=== PATIENT | female | born 1985 | race African-American/Black ===

== ENCOUNTER 2016-05-19 16:44 | Inpatient (IN) | payer BC, OTHER ==
[2016-05-19] MEDS ORDERED: MAGNESIUM SULFATE-WATER PMX 4 GM in WATER FOR INJECTION 50 50ML.BAG IVPB ONE (17:26)
[2016-05-19] MEDS ORDERED: LABETALOL SYRINGE 5 MG/ML IVP PRN (17:30)
[2016-05-19 17:41] LABS: Basophils % (A) 0 %; CH 32.3; CHCM 33.4; Eosinophils # (A) 0.1 k/uL (0-0.7); Eosinophils % (A) 2 %; HCT 39.1 % (34.0-46.0); HDW 2.46; HGB 12.6 gm/dL (11.4-16.0); Luc # (Auto) 0.14; Luc % (Auto) 2; Lymphocytes # (A) 1.5 k/uL (1.0-4.8); Lymphocytes % (A) 17 %; MCH 31.3 pg (25.0-35.0); MCHC 32.2 g/dL (31.0-37.0); MCV 97.2 fL (80.0-100.0); Mean Platelet Volume 9.5; Monocytes # (A) 0.5 k/uL (0-1.0); Monocytes % (A) 6 %; Neutrophils # (A) 6.4 k/uL (1.3-7.7); Neutrophils % (A) 74 %; RBC 4.02 m/uL (3.80-5.40); RDW 12.9 % (11.5-15.5); WBC 8.7 k/uL (3.8-10.6); WBC (Perox) 9.18
[2016-05-19 17:52] LABS: ALT 32 U/L (9-52); AST 34 U/L (14-36); Blood Urea Nitrogen 14 mg/dL (7-17); Non-African American GFR(MDRD) >60 (>60 ml/min/1.73 sqM); Uric Acid 4.9 mg/dL (3.7-7.4)
[2016-05-19] MEDS ORDERED: CITRIC ACID-SODIUM CITRATE 15 ML CUP PO ONE (17:53)
[2016-05-19 17:55] LABS: Glucose,Whole Blood 76 mg/dL (75-99)
[2016-05-19] MEDS: LACTATED RINGERS 1,000 ML IV SCH (17:55)
[2016-05-19] MEDS ORDERED: OXYTOCIN 10 UNIT/ML 1 ML VIAL IM ONE (18:04)
[2016-05-19] MEDS ORDERED: fentaNYL (PF) 50 MCG/ML 2 ML AMP ONE (18:04)
[2016-05-19] MEDS ORDERED: ceFAZolin 1,000 MG VIAL ONE (18:04)
[2016-05-19] MEDS ORDERED: KETOROLAC 30 MG/ML 1 ML VIAL ONE (18:04)
[2016-05-19] MEDS ORDERED: MORPHINE SULFATE (PF) 0.3 MG/0.3 ML SYR ONE (18:04)
[2016-05-19] MEDS ORDERED: ONDANSETRON 4 MG/2 ML VIAL ONE (18:04)
[2016-05-19] MEDS ORDERED: LACTATED RINGERS 1,000 ML BAG IV ONE (18:04)
[2016-05-19 18:10] LABS: Appearance,Urine Clear (Clear); Bilirubin,Urine Negative (Negative); Glucose,Urine (UA) Negative (Negative); Ketones,Urine 1+ (Negative); Leukocyte Esterase,Urine Negative (Negative); Nitrite,Urine Negative (Negative); Protein,Urine Negative (Negative); Specific Gravity,Urine 1.007 (1.001-1.035); UA Billing (MACRO vs. MICRO) CHEM; Urobilinogen,Urine <2.0 mg/dL (<2.0)
[2016-05-19] MEDS ORDERED: MORPHINE SULFATE 4 MG/ML SYRINGE IVP PRN (18:29)
[2016-05-19] MEDS ORDERED: ONDANSETRON 4 MG/2 ML VIAL IVP PRN (18:29)
[2016-05-19] MEDS ORDERED: diphenhydrAMINE 50 MG/ML 1 ML VIAL IVP PRN ×3 (18:29→18:53)
[2016-05-19] MEDS ORDERED: NALBUPHINE 10 MG/ML AMPUL IV PRN (18:29)
[2016-05-19] MEDS ORDERED: NALOXONE 0.4 MG/ML 1 ML VIAL IV PRN (18:29)
[2016-05-19] MEDS ORDERED: METOCLOPRAMIDE 5 MG/ML 2 ML VIAL IVP PRN ×2 (18:29→18:53)
[2016-05-19] MEDS ORDERED: PROMETHAZINE INJ 6.25 MG in SODIUM CHLORIDE 0.9% 50 ML IVPB PRN (18:29)
[2016-05-19] MEDS ORDERED: diphenhydrAMINE 25 MG CAP PO PRN (18:53)
[2016-05-19] MEDS ORDERED: Acetaminophen-Codeine 300-30mg TAB PO PRN (18:53)
[2016-05-19] MEDS ORDERED: ACETAMINOPHEN TAB 325 MG TAB PO PRN (18:53)
[2016-05-19] MEDS ORDERED: ZOLPIDEM 5 MG TAB PO PRN (18:53)
[2016-05-19] MEDS ORDERED: diphenhydrAMINE 50 MG CAP PO PRN (18:53)
--- NOTE | 2016-05-19 18:57 | P.HPOB ---
History of Present Illness H&P Date: 05/19/16 Chief Complaint: Intrauterine at 35 weeks: Severe gestational hypertension Sal is a 30-year-old at 35 weeks gestation who was seen in the office today for her normal OB visit. At that time her blood pressure is 158/ 108 deep tendon reflexes were essentially normal but she did have a mild headache. Headache and present throughout the day. She was sent over to labor and delivery for gestational hypertensive labs and monitoring. Once here blood pressures began to even clamp higher despite being in a recovery position. Blood pressures were anywhere from 193/100-184/94. This is significantly elevated and while she was dilated to 3 cm after discussion with both she and her the decision to move forward with a section was made out of concern for the fact that she was remote from delivery and even after receiving a dose of IV labetalol for blood pressure only went down to 170/90. Risks/benefits/alternatives to a primary were made with the patient and all questions are answered for her prior to proceeding to the operating room. Should be noted that her course was complicated by gestational diabetes A2. She was controlled with insulin that she received as a nightly dose but otherwise she had no significant problems or complaints. Pertinent labs do include B+ blood type Rh to be negative rubella was immune hepatitis B surface antigen was negative. Past Medical History Past Medical History: No Reported History History of Any Multi-Drug Resistant Organisms: None Reported Past Surgical History: No Surgical Hx Reported Past Psychological History: No Psychological Hx Reported Smoking Status: Never smoker Past Alcohol Use History: None Reported Past Drug Use History: None Reported Medications and Allergies Home Medications Medication Instructions Recorded Confirmed Type Insulin NPH Human Isophane 16 unit SQ HS 05/19/16 05/19/16 History [NovoLIN N] Pnv with Ca,No.72/Iron/FA 1 each PO 05/19/16 History [ Plus Tablet] Allergies Allergy/AdvReac Type Severity Reaction Status Date / Time No Known Allergies Allergy Verified 05/19/16 17:04 Exam Osteopathic Statement: *. No significant issues noted on an osteopathic structural exam other than those noted in the History and Physical/Consult. - Vital Signs Vital signs: Intake and Output 05/19/16 05/19/16 05/19/16 06:59 14:59 22:59 Other: Weight 73.936 kg Patient Weight 05/20/16 06:59 Weight 73.936 kg - OBG Physical Exam Breast: both: normal (no masses) Abdomen: bowel sounds normal, no diffuse tenderness, no bruit present, no guarding noted, no hepatomegaly, no splenomegaly, no mass Vulva: both: normal Vagina: normal moisture, no discharge Cervix: no lesion, no discharge Uterus: normal size, normal contour Adnexa: both: normal Anus/Rectum: normal perianal skin, no rectal mass, no hemorrhoids, heme negative Results Result Diagrams: 05/19/16 17:30 05/19/16 17:30 Abnormal Lab Results - Last 24 Hours (Table) 05/19/16 Range/Units 18:00 Urine Ketones 1+ H (Negative)
--- NOTE | 2016-05-19 19:02 | P.OP ---
Date of Procedure: 05/19/16 Preoperative Diagnosis: Intrauterine 35 weeks: Severe gestational hypertension versus severe preeclamptic Postoperative Diagnosis: Same Procedure(s) Performed: Primary low transverse section from Pfannenstiel Anesthesia: spinal Surgeon: Ricky Sawyer Research Assistant Professor #1: Emmanuel Arroyo Estimated Blood Loss (ml): 400 IV fluids (ml): 1,300 Urine output (ml): 200 Pathology: other (Placenta) Condition: stable Disposition: floor Operative Findings: Female scores of 8 and 9 at one and 5 minutes Bruning weight was 5 lbs. 12 oz. Description of Procedure: Patient was taken to the operating suite where a spinal anesthetic was found be adequate. She was prepped and draped in the normal sterile fashion and placed in dorsal supine position with leftward tilt. Initially a Pfannenstiel skin incision was made and this incision was then carried through to underlying layer of the fascia was second knife. Fascia was then nicked in the midline and this opening was extended laterally with Dave scissors. Superior and inferior aspect of this incision were then grasped tented up and bluntly and sharply dissected off the rectus muscles. Rectus muscles were then divided midline and sharp dissection to the peritoneum was made. This opening was then extended superiorly and inferiorly with good visualization of both bowel bladder. Bladder blade was placed and the vesicouterine peritoneum was identified. This tissue was sent entered sharply with Metzenbaum scissors and the opening was extended across the face the uterus with Metzenbaum scissors with the bladder flap being digitally created. Knife was then used to incise uterus this opening was then extended bluntly. Once this was accomplished head was atraumatically delivered nuchal cord 1 reduced and shoulders were delivered with gentle traction. Once baby was fully delivered mouth nares were again bulb suctioned umbilical cord was then clamped cut usual fashion an nursery personnel was present to assume care. Placenta was then delivered intact and Pitocin was added to the IV. Uterus was then exteriorized cleared of clots and debris and closed in 2 layers with 0 Vicryl suture. Once excellent hemostasis was obtained 3-0 Vicryl was used to reapproximate the bladder flap. Blood and debris was then suctioned posterior cul-de-sac and the uterus was reinserted into the abdomen. Peritoneal layer was then closed L[place]ac suture fascial layer was closed with 0 Vicryl suture one layer of 3-0 Vicryl was used to reapproximate the skin and skin was then closed with 3-0 Vicryl on a Lawrence needle. Sponge lap needle counts all were correct 2. Patient was taken to the recovery room in stable and satisfactory condition.
[2016-05-19] MEDS: MAGNESIUM SULFATE-WATER PMX 20 GM in WATER FOR INJECTION 1 500ML.BAG IV SCH (19:30)
[2016-05-19 20:21] VITALS: BMI 27.1
[2016-05-19] MEDS: SENNOSIDES-DOCUSATE SODIUM 1 EACH TAB PO SCH (21:20)
[2016-05-20] MEDS: KETOROLAC 30 MG/ML 1 ML VIAL IVP PRN ×4 (00:54→20:33)
[2016-05-20] MEDS: LACTATED RINGERS 1,000 ML IV SCH ×4 (01:04→13:38)
[2016-05-20] MEDS: LABETALOL 100 MG TAB PO SCH ×3 (01:07→20:25)
[2016-05-20] MEDS: OXYTOCIN 30 UNITS/500 ML NS 30 UNIT in SALINE 1 500ML.BAG IV SCH ×4 (04:17→13:38)
[2016-05-20] MEDS: MAGNESIUM SULFATE-WATER PMX 20 GM in WATER FOR INJECTION 1 500ML.BAG IV SCH ×2 (05:39→15:44)
[2016-05-20 08:07] LABS: Basophils % (A) 0 %; CH 32.2; CHCM 33.3; Eosinophils # (A) 0.1 k/uL (0-0.7); Eosinophils % (A) 1 %; HCT 35.9 % (34.0-46.0); HDW 2.42; HGB 11.5 gm/dL (11.4-16.0); Luc # (Auto) 0.07; Luc % (Auto) 1; Lymphocytes # (A) 0.8 k/uL (1.0-4.8); Lymphocytes % (A) 8 %; MCH 31.3 pg (25.0-35.0); MCHC 32.1 g/dL (31.0-37.0); MCV 97.3 fL (80.0-100.0); Mean Platelet Volume 9.1; Monocytes # (A) 0.4 k/uL (0-1.0); Monocytes % (A) 4 %; Neutrophils # (A) 8.4 k/uL (1.3-7.7); Neutrophils % (A) 86 %; RBC 3.68 m/uL (3.80-5.40); WBC 9.8 k/uL (3.8-10.6); WBC (Perox) 10.14
[2016-05-20] MEDS: SENNOSIDES-DOCUSATE SODIUM 1 EACH TAB PO SCH ×2 (09:02→20:24)
--- NOTE | 2016-05-20 09:42 | P.PNOBGPC ---
Subjective - Subjective Principal diagnosis: Postoperative day 1: Gestational hypertension Interval history: Patient is doing very well this morning. Her blood pressure significant improved with labetalol they are 120s over 80s. Voices no complaints no headache epigastric pain or other signs or symptoms of preeclampsia. Vital signs are again stable. Heart regular, lungs clear, extremities without pain. Abdomen soft incision is intact. Assessment postop day 1. Plan continue current care. Objective - Vital Signs Latest vital signs: Vital Signs Temp Pulse Resp BP Pulse Ox 05/20/16 09:36 70 17 124/84 05/20/16 08:36 64 123/102 05/20/16 08:00 97.5 F L 66 17 141/81 97 05/20/16 05:45 97.5 F L 62 16 126/91 98 05/20/16 05:00 98 05/20/16 04:00 97.6 F 68 16 122/74 05/20/16 03:00 99 05/20/16 01:00 98.0 F 73 16 134/76 99 05/19/16 23:00 97.6 F 76 16 129/85 99 05/19/16 21:26 99 05/19/16 21:23 97.5 F L 71 16 135/84 99 05/19/16 20:51 62 16 147/85 100 05/19/16 20:23 67 16 147/85 100 05/19/16 19:53 97.0 F L 65 16 150/90 100 05/19/16 19:38 97.0 F L 62 16 147/85 99 05/19/16 19:23 61 16 145/84 99 05/19/16 19:08 65 16 168/82 98 05/19/16 18:53 96.1 F L 57 L 17 143/90 99 05/19/16 17:26 96.6 F L 52 L 16 172/96 Intake and Output 05/19/16 05/20/16 05/20/16 22:59 06:59 14:59 Intake Total 50 1950 Output Total 800 1200 Balance -750 750 Intake: IV 500 Magnesium Sulfate-Water 500 Pmx 20 gm In Water For Injection 1 500ml.bag @ 2 GM/HR 50 mls/hr IV .Q10H JENNA Rx#:[id number] Intake, IV Titration 50 1450 Amount Lactated Ringers 1,000 ml 950 @ 20 mls/hr IV .Q24H JENNA Rx#:[id number] Magnesium Sulfate-Water 500 Pmx 20 gm In Water For Injection 1 500ml.bag @ 2 GM/HR 50 mls/hr IV .Q10H JENNA Rx#:[id number] Magnesium Sulfate-Water 50 Pmx 4 gm In Water For Injection 50 50ml.bag @ 150 mls/hr IVPB ONCE ONE Rx#:[id number] Output: Urine 800 1200 Other: Voiding Method Indwelling Catheter Indwelling Catheter # Voids 600 Weight 73.936 kg - Exam Lungs: bilateral: normal Chest: Normal S1, Normal S2 Extremities: Present: normal Abdomen: Present: normal appearance, soft. Absent: distention, tenderness Incision: Present: normal, dry, intact Uterus: Present: normal, firm - Labs Labs: Abnormal Lab Results - Last 24 Hours (Table) 05/19/16 05/20/16 Range/Units 18:00 07:45 RBC 3.68 L (3.80-5.40) m/uL Plt Count 136 L (150-450) k/uL Neutrophils # 8.4 H (1.3-7.7) k/uL Lymphocytes # 0.8 L (1.0-4.8) k/uL Urine Ketones 1+ H (Negative)
--- NOTE | 2016-05-20 10:39 | P.PN ---
Progress Note - Text Date:05/20 Time:710 Patient is status post . Patient seen this morning with VAS score of . c/o of pruritus, no c/o nausea/vomiting, comfortable and doing well.
[2016-05-21] MEDS: Acetaminophen-Codeine 300-30mg TAB PO PRN ×4 (00:17→20:12)
[2016-05-21] MEDS: IBUPROFEN 600 MG TAB PO PRN ×3 (03:49→21:18)
--- NOTE | 2016-05-21 07:27 | P.PNOBGPC ---
Subjective - Subjective Principal diagnosis: Postoperative day 2 Interval history: Sal is overall doing well. Her blood pressures are noted to still be in the 140s 150s over 90s. However this is stable and there've been no significant elevations. We'll continue to monitor her through today continue with labetalol. Should her blood pressures change may need to increase the dose of labetalol but at this time with only mild blood pressure elevations will plan to maintain dosage. Otherwise she is ambulating, voiding and she is tolerating her diet. She voices no other complaints. Objective - Vital Signs Latest vital signs: Vital Signs Temp Pulse Resp BP Pulse Ox 05/21/16 03:48 98.6 F 74 10 L 145/93 05/21/16 00:00 98.0 F 76 10 L 146/89 05/20/16 16:00 97.6 F 74 19 134/91 98 05/20/16 12:00 97.6 F 71 17 121/84 100 05/20/16 09:36 70 17 124/84 05/20/16 08:36 64 123/102 05/20/16 08:00 97.5 F L 66 17 141/81 97 Intake and Output 05/20/16 05/21/16 05/21/16 22:59 06:59 14:59 Intake Total 500 Output Total 800 401 Balance -300 -401 Intake: Intake, IV Titration 500 Amount Magnesium Sulfate-Water 500 Pmx 20 gm In Water For Injection 1 500ml.bag @ 2 GM/HR 50 mls/hr IV .Q10H JENNA Rx#:[id number] Output: Urine 800 401 Other: Voiding Method Indwelling Catheter # Voids 1 - Exam Lungs: bilateral: normal Chest: Normal S1, Normal S2 Extremities: Present: normal Abdomen: Present: normal appearance, soft, other (Incisional tenderness only, incision is otherwise clean dry and intact). Absent: distention, tenderness Incision: Present: normal, dry, intact Uterus: Present: normal, firm - Labs Labs: Abnormal Lab Results - Last 24 Hours (Table) 05/20/16 Range/Units 07:45 RBC 3.68 L (3.80-5.40) m/uL Plt Count 136 L (150-450) k/uL Neutrophils # 8.4 H (1.3-7.7) k/uL Lymphocytes # 0.8 L (1.0-4.8) k/uL
[2016-05-21] MEDS: LACTATED RINGERS 1,000 ML IV SCH ×3 (07:30→12:12)
[2016-05-21] MEDS: MAGNESIUM SULFATE-WATER PMX 20 GM in WATER FOR INJECTION 1 500ML.BAG IV SCH ×2 (07:32→09:45)
[2016-05-21] MEDS: LABETALOL 100 MG TAB PO SCH (08:26)
[2016-05-21] MEDS: SENNOSIDES-DOCUSATE SODIUM 1 EACH TAB PO SCH ×2 (08:56→20:13)
[2016-05-21 11:59] LABS: Glucose,Whole Blood 161 mg/dL (75-99)
[2016-05-21] MEDS: LABETALOL 200 MG TAB PO SCH (16:49)
[2016-05-21] MEDS: amLODIPine 5 MG TAB PO SCH (20:12)
[2016-05-21] MEDS ORDERED: amLODIPine 5 MG TAB PO SCH (21:00)
[2016-05-21] MEDS ORDERED: hydrALAZINE HCL 20 MG/ML 1 ML VIAL IVP PRN (21:37)
[2016-05-21 22:39] LABS: ALT 27 U/L (9-52); AST 29 U/L (14-36); Alkaline Phosphatase 107 U/L (38-126); Anion Gap 6 mmol/L; Blood Urea Nitrogen 7 mg/dL (7-17); Calcium 8.7 mg/dL (8.4-10.2); Carbon Dioxide 24 mmol/L (22-30); Chloride 109 mmol/L (98-107); Glucose 138 mg/dL (74-99); Non-African American GFR(MDRD) >60 (>60 ml/min/1.73 sqM); Potassium 4.7 mmol/L (3.5-5.1); Sodium 139 mmol/L (137-145); Total Bilirubin 0.6 mg/dL (0.2-1.3); Total Protein 5.3 g/dL (6.3-8.2)
[2016-05-22] MEDS: Acetaminophen-Codeine 300-30mg TAB PO PRN ×3 (04:51→20:53)
[2016-05-22] MEDS: SENNOSIDES-DOCUSATE SODIUM 1 EACH TAB PO SCH ×2 (07:26→21:29)
[2016-05-22 07:27] LABS: Glucose,Whole Blood 91 mg/dL (75-99)
[2016-05-22] MEDS: IBUPROFEN 600 MG TAB PO PRN ×2 (07:27→16:17)
[2016-05-22] MEDS ORDERED: INSULIN LISPRO (humaLOG) 300 UNIT/3 ML VIAL SQ SCH (07:30)
--- NOTE | 2016-05-22 08:03 | CONS ---
DATE OF CONSULTATION: REASON FOR CONSULTATION: Hypertension and multiple medical issues requested by Dr. Sawyer. HISTORY OF PRESENT ILLNESS: This 30 -year-old woman presented with severe gestational hypertension underwent a section. The patient is having persistent hypertension. The blood pressure is found to be 161/88, 167/107, 155/93, 150/96, labetalol dose was increased. There is no history of fever, rigors or chills. No history of headache, loss of consciousness. No chest pain, palpitations, shortness of breath, hematochezia, melena. The patient being followed by Dr. Buitrago in the outpatient setting. Magnesium was administered after admission. Past medical history of ganglion cyst, otherwise, no history of previous hypertension or diabetes mellitus. SOCIAL HISTORY: No history of smoking. No history of alcohol intake. REVIEW OF SYSTEMS: ENT: No diminished hearing or diminished vision. CARDIOVASCULAR: No angina. RESPIRATORY: As mentioned earlier. GASTROINTESTINAL: As mentioned earlier. : As mentioned earlier. CENTRAL NERVOUS SYSTEM: No numbness or weakness. Allergy/immunology: No asthma or hayfever. MUSCULOSKELETAL: As mentioned earlier. HEMATOLOGY/ONCOLOGY: No history of anemia. ENDOCRINE: Gestational diabetes. CONSTITUTIONAL: As mentioned earlier. DERMATOLOGY: Negative. RHEUMATOLOGY: Negative. PSYCHIATRY: Negative. PHYSICAL EXAMINATION: Alert and oriented times three. Pulse 59, blood pressure 155/97. Respiratory rate 18. Temperature is normal. Pulse ox 100% on room air. HEENT: Conjunctivae normal. Oral mucosa moist. NECK: No jugular venous distention. No thyroid enlargement. No carotid bruit. CARDIOVASCULAR: S1, S2 muffled. No S3, no S4. No murmur. No thrills. RESPIRATORY: Breath sounds diminished at the bases. No rhonchi. No crackles. ABDOMEN: Soft, status post guarding, rigidity. No mass palpable. Legs: Bilaterally, minimal leg edema. Nervous system: Higher functions as mentioned earlier. No focal deficits. LYMPHATICS: No lymph nodes palpable in the neck, axillae or groin. SKIN: No ulcer, rash or bleeding. LABS: WBC 9.8 and platelets 136. ASSESSMENT: 1. associated hypertension. 2. Status post section. 3. Thrombocytopenia mild. 4. Increased random blood sugar. 5. History of ganglion cyst RECOMMENDATIONS AND DISCUSSION: This 30 -year-old woman who presented with multiple medical problems, agree with increase in Labetalol dose, add amlodipine. Also recommend hydralazine p.r.n. Baseline labs including liver functions may be obtained. We will follow the patient closely. The patient may be asked to follow with Dr. Buitrago closely after discharge. Thank you Dr. Sawyer for letting us participate in the care of this patient. MTDD
[2016-05-22] MEDS: LABETALOL 200 MG TAB PO SCH ×2 (08:14→20:53)
[2016-05-22 11:16] LABS: Hemoglobin A1C 5.2 % (4.2-6.1)
[2016-05-22] MEDS: amLODIPine 5 MG TAB PO SCH ×2 (11:47→12:30)
--- NOTE | 2016-05-22 11:55 | P.PNOBGPC ---
Subjective - Subjective Principal diagnosis: Postoperative day 3 Interval history: Patient is doing overall well. Her blood pressure seems to be better following adjustments of her blood pressure medicines. Her IV did come out we'll therefore continue to leave it out unless she starts having very significant blood pressure issues. Also was noted that medicine had at re-added Accu-Cheks with coverage. However, from a gestational diabetic standpoint there is no reason to continue those once she has delivered so we will therefore discontinued the Accu-Cheks. Otherwise she is able to ambulate, void and she is tolerating her diet. Her baby is doing very well in special care nursery. Is just now matter of getting her stabilized so that we can discuss potentially discharged home at some point in the near future. Her vital signs currently as stated are stable and she is afebrile. Her only complaint is that she has a mild rash along her upper abdomen and back through her buttock area likely this is due to either the soap that was used preoperatively or the drape as it is falling those lines. Otherwise pain is well-controlled and she voices no other complaints this time. Objective - Vital Signs Latest vital signs: Vital Signs Temp Pulse Resp BP Pulse Ox 05/22/16 10:04 79 128/75 05/22/16 09:18 136/89 05/22/16 08:13 140/90 05/22/16 08:00 97.3 F L 75 17 150/85 100 05/21/16 22:45 98.1 F 74 18 130/73 98 05/21/16 22:10 57 L 18 150/88 05/21/16 19:20 59 L 18 155/97 05/21/16 17:50 150/96 05/21/16 16:45 62 155/93 05/21/16 16:15 166/107 05/21/16 16:00 98.3 F 62 17 161/88 100 Intake and Output 05/21/16 05/22/16 05/22/16 22:59 06:59 14:59 Intake Total 600 Balance 600 Intake: Oral 600 Other: # Voids 2 2 1 - Exam Lungs: bilateral: normal Chest: Normal S1, Normal S2 Extremities: Present: normal Abdomen: Present: normal appearance, soft. Absent: distention, tenderness Incision: Present: normal, dry, intact Uterus: Present: normal, firm - Labs Labs: Abnormal Lab Results - Last 24 Hours (Table) 05/21/16 05/21/16 Range/Units 11:54 22:05 Chloride 109 H (98-107) mmol/L Glucose 138 H (74-99) mg/dL POC Glucose (mg/dL) 161 H (75-99) mg/dL Total Protein 5.3 L (6.3-8.2) g/dL Albumin 2.7 L (3.5-5.0) g/dL
[2016-05-22] MEDS ORDERED: amLODIPine 2.5 MG TAB PO SCH (12:15)
[2016-05-23] MEDS: IBUPROFEN 600 MG TAB PO PRN (00:06)
--- NOTE | 2016-05-23 09:00 | P.PN ---
Progress Note - Text Patient seen and evaluated postop day 4. She is able to ambulate, she is voiding, and she is tolerating her diet. Her vital signs overall have been better but still her blood pressures of been elevated despite being on 2 antihypertensive. The majority of her blood pressures of been in the 140s to 150s over 90s. If she was not on blood pressure medicine I don't noted be terribly concerned the fact that she is on 2 blood pressure medicines and still has high blood pressure is somewhat concerning to me at this time. We'll plan to allow medicine to re-see her for potential adjustments to her medication. Ordinarily on postop day 4 we are trying get them home however at this time I do not feel she is stable as she really has not tried to ambulate much in the last couple of days since her blood pressure started going back up and therefore I'm not sure how movement and daily activities will affect her blood pressure. Plan for today will be to have her get up and move around [facility] the halls go to special care nursery to see her baby and check her blood pressures intermittently to verify her blood pressures are holding stable on the medications. Physical exam her heart is regular, lungs are clear, extremities without pain. Abdomen soft uterus firm incision is clean dry and intact. Assessment postop day 4 with gestational hypertension. Plan continue current care for right now.
[2016-05-23] MEDS: amLODIPine 5 MG TAB PO SCH (09:01)
[2016-05-23] MEDS: LABETALOL 200 MG TAB PO SCH (09:01)
[2016-05-23] MEDS: SENNOSIDES-DOCUSATE SODIUM 1 EACH TAB PO SCH (09:01)
[2016-05-23 09:15] VITALS: RESP 20; TEMP 98.4
--- NOTE | 2016-05-23 10:53 | PN ---
DATE OF SERVICE: 05/22/2016 This 30-year-old woman was admitted after -induced hypertension. She is being closely monitored. Blood pressure are fluctuating at this time. No chest pain or palpitation. No fever. Patient's labetalol at 200 mg p.o. b.i.d. and patient also received Norvasc yesterday. On exam, alert and oriented x3. Pulse 63, blood pressure is 155/95, respirations 20, temperature is normal, pulse ox 100% on room air. HEENT: Conjunctivae normal. NECK: No jugular venous distension. CARDIOVASCULAR SYSTEM: S1, S2, muffled. RESPIRATORY: Breath sounds diminished at the bases, no rhonchi, no crackles. Abdomen is soft, nontender. NERVOUS SYSTEM: No focal deficits. LABS: Albumin 2.7, glucose 138 and 91. ASSESSMENT: 1. -associated hypertension. 2. Status post Cesarian section. 3. Thrombocytopenia, mild. 4. Increased random blood sugar and gestational diabetes. 5. History of ganglion cyst removal. 6. Mild hypoalbuminemia. RECOMMENDATION: In this 30-year-old woman who presented after delivery as high blood pressure. I would recommend to continue with Norvasc 5 mg p.o. daily and continue to monitor. Otherwise, labetalol 200 mg p.o. b.i.d. and the medication we will try to titrate once the blood pressure is controlled. Further recommendations to follow.
[2016-05-23 16:20] VITALS: BP 118/74; PULSE 70
--- NOTE | 2016-05-23 19:10 | PN ---
DATE OF SERVICE: 05/23/2016 This 30-year-old woman who was admitted after -induced hypertension is being closely monitored. The blood pressure is improving. No chest pain. No palpitation. No fever. On exam, alert and oriented x3. Pulse is 88, blood pressure 142/84, respiration 20, temperature 98.4, pulse ox 99% on room air. HEENT: Conjunctivae normal. NECK: No jugular venous distention. CARDIOVASCULAR SYSTEM: S1, S2 muffled. RESPIRATORY SYSTEM: Breath sounds diminished at the bases. No rhonchi. No crackles. ABDOMEN: Soft, non-tender. No mass palpable. LEGS: No edema. No swelling. NERVOUS SYSTEM: No focal deficit. LABS: Reviewed. ASSESSMENT: 1. -induced hypertension. 2. Status post section. 3. Thrombocytopenia, mild. 4. Increased random blood sugar and gestational diabetes mellitus. 5. History of ganglion cyst removal. 6. Mild hypoalbuminemia. RECOMMENDATIONS AND DISCUSSION: At this time I recommend continuing the current medications, continuing with symptomatic treatment, continuing the labetalol and Norvasc. Continue to follow up with the primary physician in the outpatient setting. Otherwise, patient may be discharged home. Recommendations and prescriptions are written. Further recommendations to follow.
--- NOTE | 2016-10-05 09:08 | P.DS ---
Providers Date of admission: 05/19/16 17:22 Expected date of discharge: 05/23/16 Attending physician: Ricky Sawyer Consults: 05/21/16 18:09 Consult Physician Stat Consulting Provider: Ashutosh Hidalgo Reason/Comments: Continued elevated blood pressures Do you want consulting provider notified?: Yes Primary care physician: Stated None Hospital Course: Alyse was discharged on postop day 4 following a section for preeclampsia versus -induced hypertension. She also had gestational diabetes A2. Due to elevated blood pressures Dr. Hidalgo was asked to consult and manage her blood pressures post delivery. Medications were initiated and blood pressures were stabilized prior to discharge. She was discharged home on Norvasc as well as pain medication and she was to follow-up in the next 2-3 days for blood pressure check. Her incisions the time of discharge is clean dry and intact. Please see Dr. Hidalgo's notes regarding decision making process prior to discharge. Her heart was regular, lungs were clear, extremities without pain. Overall the patient did well postoperatively and was discharged home in stable condition on post op day 4. Assessment postop day 4 with pregnancies hypertension, gestational diabetes A2 Plan follow up with me in a few days for blood pressure check and reevaluation of incision. Patient Condition at Discharge: Good Plan - Discharge Summary New Discharge Prescriptions: Acetaminophen-Codeine 300-30mg [Tylenol #3] 1 tab PO Q4H PRN #30 tablet PRN Reason: Pain amLODIPine [Norvasc] 5 mg PO DAILY #30 tab Ibuprofen [Motrin] 600 mg PO Q6HR PRN #30 tab PRN Reason: Pain Labetalol [Trandate] 200 mg PO BID #60 tablet Discharge Medication List Insulin NPH Human Isophane [NovoLIN N] 16 unit SQ HS 05/19/16 [History] Pnv,Calcium 72/Iron/Folic Acid [ Plus Tablet] 1 each PO 05/19/16 [ History] Acetaminophen-Codeine 300-30mg [Tylenol #3] 1 tab PO Q4H PRN #30 tablet [Rx] Ibuprofen [Motrin] 600 mg PO Q6HR PRN #30 tab 05/23/16 [Rx] Labetalol [Trandate] 200 mg PO BID #60 tablet 05/23/16 [Rx] amLODIPine [Norvasc] 5 mg PO DAILY #30 tab 05/23/16 [Rx] Follow up Appointment(s)/Referral(s): Ricky Sawyer DO [Doctor of Osteopathic Medicine] - 3 Days Penny Buitrago MD [REFERRING] - 1 Week (Maintain log of Blood pressures and take to follow-up visit with PCP for further recommendations) Activity/Diet/Wound Care/Special Instructions: No heavy lifting, limit stairs and driving and pelvic rest. If any high temperatures, heavy bleeding, or severe pain call my office. Should she have any or feelings that she may have increasing blood pressures she is to report to the emergency room. Discharge Disposition: HOME SELF-CARE
== END 2016-05-23 15:40 | disposition home or self-care (01) | DRG 765 ==
LOC: FBPOP 16:44 → 4FBP 17:22
PROVIDERS: ADMIT Obstetrics & Gynecology; ATTEND Obstetrics & Gynecology
PROC: 10D00Z1 Extraction of Products of Conception, Low, Open Approach (ICD-10-PCS; principal; 2016-05-19 18:19)
DX: O13.4 Gestational [pregnancy-induced] hypertension without significant proteinuria, complicating childbirth (principal); O99.12 Other diseases of the blood and blood-forming organs and certain disorders involving the immune mechanism complicating childbirth; D69.6 Thrombocytopenia, unspecified; O24.429 Gestational diabetes mellitus in childbirth, unspecified control; E88.09 Other disorders of plasma-protein metabolism, not elsewhere classified; Z37.0 Single live birth; O99.284 Endocrine, nutritional and metabolic diseases complicating childbirth; Z3A.35 35 weeks gestation of pregnancy
CPT/HCPCS: 59025; 80053; 81003; 82565; 83036; 83735; 84450; 84460; 84520; 84550; 85025; 86850; 86900; 86901; 88307; 99215

== ENCOUNTER 2020-07-23 08:31 | Emergency (ER) | payer BC, OTHER ==
[2020-07-23 08:38] VITALS: RESP 16
--- NOTE | 2020-07-23 09:14 | ED ---
General Adult HPI - General Chief complaint: Allergic Reaction Stated complaint: ENT Source: patient Mode of arrival: ambulatory Limitations: no limitations - History of Present Illness Initial comments: 34-year-old female without any significant past medical history presents to the emergency room for a chief complaint of mouth pain. Patient reports that she started to have some pain with urination on Monday so took an unknown antibiotic that she had left over that is . Patient states shortly afterward her mouth started to hurt along the sides of her tongue and her lower lip. States there are swollen as well. The swelling has since improved however she still has pain on the sides of her tongue as well as the bottom anterior aspect of her lower lip. Patient states she tried Orajel [id number] but does not seem to be working. Patient states she is here for some relief for this. Patient denies fevers. Denies pain elsewhere. Patient still does admit to a very mild dysuria, denies flank pain abdominal pain fevers.Patient has no other complaints at this time including shortness of breath, chest pain, abdominal pain, nausea or vomiting, headache, or visual changes. - Related Data Home Medications Medication Instructions Recorded Confirmed HYDROcodone/APAP 10-325MG [[place] 1 tab PO DAILY PRN 07/23/20 07/23/20 10-325] medroxyPROGESTERone [Depo-Provera] 150 mg IM Q90D 07/23/20 07/23/20 Previous Rx's Medication Instructions Recorded Lidocaine Viscous [Xylocaine 5 ml PO QID #50 ml 07/23/20 Viscous 2%] Allergies Allergy/AdvReac Type Severity Reaction Status Date / Time Sulfa (Sulfonamide Allergy Severe Anaphylaxis Verified 07/23/20 09:09 Antibiotics) Review of Systems ROS Statement: Those systems with pertinent positive or pertinent negative responses have been documented in the HPI. ROS Other: All systems not noted in ROS Statement are negative. Past Medical History Past Medical History: No Reported History History of Any Multi-Drug Resistant Organisms: None Reported Past Surgical History: No Surgical Hx Reported Additional Past Surgical History / Comment(s): ganglion cyst removal-left wrist 1999 Past Anesthesia/Blood Transfusion Reactions: No Reported Reaction Past Psychological History: No Psychological Hx Reported Smoking Status: Never smoker Past Alcohol Use History: None Reported Past Drug Use History: None Reported - Past Family History Mother Family Medical History: Hypertension General Exam Limitations: no limitations General appearance: alert, in no apparent distress Head exam: Present: atraumatic, normocephalic, normal inspection Eye exam: Present: normal appearance, PERRL, EOMI. Absent: scleral icterus, conjunctival injection, periorbital swelling ENT exam: Present: mucous membranes moist, TM's normal bilaterally. Absent: normal oropharynx (Tongue appears normal however patient does have small ulceration noted on the middle aspect of the interior lower lip. No sores elsewhere on the outside of the mouth.) Neck exam: Present: normal inspection, full ROM. Absent: tenderness, meningismus, lymphadenopathy Respiratory exam: Present: normal lung sounds bilaterally. Absent: respiratory distress, wheezes, rales, rhonchi, stridor Cardiovascular Exam: Present: regular rate, normal rhythm, normal heart sounds. Absent: systolic murmur, diastolic murmur, rubs, gallop, clicks GI/Abdominal exam: Present: soft, normal bowel sounds. Absent: distended, tenderness, guarding, rebound, rigid Back exam: Absent: CVA tenderness (R), CVA tenderness (L) Skin exam: Present: warm, dry, intact, normal color. Absent: rash Course Vital Signs 07/23/20 07/23/20 08:35 09:24 Temperature 98.5 F 98.0 F Pulse Rate 115 H 85 Respiratory 16 16 Rate Blood Pressure 137/93 123/96 O2 Sat by Pulse 98 98 Oximetry Medical Decision Making - Medical Decision Making Vitals are stable. Patient initially tachycardic which did improve throughout her stay, likely related to anxiety. Physical exam as documented. Patient was given Magic mouthwash prescription. Suspect ulceration will resolve on its own. No histories of fevers at home. Urinalysis is unremarkable. No obvious evidence of infection. Patient reports that her symptoms of dysuria have almost completely resolved. She will follow up with her doctor. She will return for any worsening symptoms. - Lab Data Lab Results 07/23/20 07/23/20 Range/Units 09:09 09:09 Urine Color Yellow Urine Appearance Cloudy H (Clear) Urine pH 5.5 (5.0-8.0) Ur Specific [place] 1.027 (1.001-1.035) Urine Protein Negative (Negative) Urine Glucose (UA) Negative (Negative) Urine Ketones Negative (Negative) Urine Blood Negative (Negative) Urine Nitrite Negative (Negative) Urine Bilirubin Negative (Negative) Urine Urobilinogen <2.0 (<2.0) mg/dL Ur Leukocyte Esterase Negative (Negative) Urine RBC 1 (0-5) /hpf Urine WBC 2 (0-5) /hpf Ur Squamous Epith Cells 8 H (0-4) /hpf Urine Mucus Rare H (None) /hpf Urine HCG, Qual Not Detected (Not Detectd) Disposition Clinical Impression: Ulceration of oral mucosa Disposition: HOME SELF-CARE Condition: Good Instructions (If sedation given, give patient instructions): Gingivostomatitis (ED) Additional Instructions: Please makes medication as directed. Mix 5 mL of lidocaine with 5 mL of maalox and 5 mL of liquid benadryl. Swish and spit. Do not swallow. Follow-up with your doctor in one to 2 days. Return to the emergency room for any worsening symptoms. Prescriptions: Lidocaine Viscous [Xylocaine Viscous 2%] 5 ml PO QID #50 ml Is patient prescribed a controlled substance at d/c from ED?: No Referrals: Penny Buitrago MD [Primary Care Provider] - 1-2 days Time of Disposition: 10:15
[2020-07-23 09:50] LABS: Appearance,Urine Cloudy (Clear); Bilirubin,Urine Negative (Negative); Blood,Urine Negative (Negative); Color,Urine Yellow; Glucose,Urine (UA) Negative (Negative); Ketones,Urine Negative (Negative); Leukocyte Esterase,Urine Negative (Negative); Mucus,Urine Rare /hpf; Nitrite,Urine Negative (Negative); PH, Urine 5.5 (5.0-8.0); Protein,Urine Negative (Negative); RBC,Urine 1 /hpf (0-5); Specific Gravity,Urine 1.027 (1.001-1.035); Squamous Epithelial Cell,Urine 8 /hpf (0-4); Urobilinogen,Urine <2.0 mg/dL (<2.0); WBC,Urine 2 /hpf (0-5)
[2020-07-23 11:02] VITALS: BP 118/72; PULSE 82; TEMP 97.6
== END 2020-07-23 11:02 | disposition home or self-care (01) ==
LOC: EC 08:31
DX: K12.1 Other forms of stomatitis (principal); Z79.3 Long term (current) use of hormonal contraceptives
CPT/HCPCS: 81001; 81025; 99283

== ENCOUNTER 2022-04-19 11:21 | Emergency (ER) | payer BC ==
[2022-04-19] MEDS ORDERED: ASPIRIN 81 MG PO STA (11:59)
--- NOTE | 2022-04-19 12:27 | ED ---
General Adult HPI - General Chief complaint: Chest Pain Stated complaint: chest pain Time Seen by Provider: 04/19/22 11:50 Source: patient, RN notes reviewed Mode of arrival: ambulatory Limitations: no limitations - History of Present Illness Initial comments: Patient is a 36-year-old -[place] female presenting to the emergency room with complaints of chest pain left chest wall reproducible with deep palpation, unchanged with inspiration; no known alleviating alleviating factors. She is also complaining of intermittent left arm pain that is throbbing in nature with occasional numbness and tingling in her left hand. She reports that she has some numbness and tingling in her right hand left hand at this time is unchanged with change in position of the left arm. She denies any left arm trauma, known cervicalgia, shoulder impingement or carpal tunnel syndrome. She denies any neck pain or right-sided symptoms. She does report a headache ye sterday and some mild dizziness today. She denies any shortness of breath, abdominal pain, nausea, vomiting, fevers or chills. She reports that she did begin and new exercise regimen approximately 2 weeks ago which has been consistent however she reports that the symptoms are not similar to her previous exercise-induced muscle pain. She is a past medical history significant for gestational hypertension. She has no significant family history of coronary artery disease less than age of 55. - Related Data Home Medications Medication Instructions Recorded Confirmed HYDROcodone/APAP 10-325MG [[place] 1 tab PO DAILY PRN 07/23/20 07/23/20 10-325] medroxyPROGESTERone [Depo-Provera] 150 mg IM Q90D 07/23/20 07/23/20 Previous Rx's Medication Instructions Recorded Lidocaine Viscous [Xylocaine 5 ml PO QID #50 ml 07/23/20 Viscous 2%] Allergies Allergy/AdvReac Type Severity Reaction Status Date / Time Sulfa (Sulfonamide Allergy Severe Anaphylaxis Verified 07/23/20 09:09 Antibiotics) Review of Systems ROS Statement: Those systems with pertinent positive or pertinent negative responses have been documented in the HPI. ROS Other: All systems not noted in ROS Statement are negative. Past Medical History Last Myocardial Infarction Date:: Gestational hypertension History of Any Multi-Drug Resistant Organisms: None Reported Past Surgical History: No Surgical Hx Reported Additional Past Surgical History / Comment(s): ganglion cyst removal-left wrist 1999 Past Anesthesia/Blood Transfusion Reactions: No Reported Reaction Past Psychological History: No Psychological Hx Reported Smoking Status: Never smoker Past Alcohol Use History: None Reported Past Drug Use History: None Reported - Past Family History Mother Family Medical History: Hypertension General Exam Limitations: no limitations General appearance: alert, in no apparent distress Head exam: Present: atraumatic, normocephalic, normal inspection Eye exam: Present: normal appearance, PERRL, EOMI. Absent: scleral icterus, conjunctival injection, periorbital swelling ENT exam: Present: normal exam, mucous membranes moist Neck exam: Present: normal inspection. Absent: tenderness, meningismus, lymphadenopathy Respiratory exam: Present: normal lung sounds bilaterally. Absent: respiratory distress, wheezes, rales, rhonchi, stridor Cardiovascular Exam: Present: regular rate, normal rhythm, normal heart sounds. Absent: systolic murmur, diastolic murmur, rubs, gallop, clicks GI/Abdominal exam: Present: soft, normal bowel sounds. Absent: distended, tenderness, guarding, rebound, rigid Extremities exam: Present: normal inspection. Absent: pedal edema, joint swelling Left Shoulder Exam: Present: full ROM, tenderness Upper Arm exam: Present: full ROM, tenderness Hand Wrist exam: Present: full ROM, tenderness, swelling Back exam: Present: normal inspection, full ROM Neurological exam: Present: alert, oriented X3, CN II-XII intact Psychiatric exam: Present: normal affect, normal mood Skin exam: Present: warm, dry, intact, normal color. Absent: rash Course Vital Signs 04/19/22 04/19/22 04/19/22 11:34 13:00 14:00 Temperature 97.7 F 97.9 F Pulse Rate 76 62 70 Respiratory 16 20 18 Rate Blood Pressure 168/98 141/92 132/89 O2 Sat by Pulse 100 100 100 Oximetry Medical Decision Making - Medical Decision Making 36-year-old -[place] female presenting with chest pain ongoing for approximately 1 week with associated headache, left arm pain, left arm paresthesia and dizziness. No dizziness or headache at this time. Chest pain worse with palpation to left chest wall. Pain radiating 5 out of 10 at this time. Will hold nitrate. Will give aspirin 325. Will start ACS workup however likely musculoskeletal in nature. Will obtain EKG, chest x-ray, CBC, CMP, troponin, and magnesium. EKG interpreted by me shows sinus rhythm. Chest x-ray image interpreted by me reveals no acute cardiopulmonary process, no infiltration or consolidation. No cardiomegaly. CMP and CBC unremarkable. Troponin negative. Magnesium normal. No indication for further laboratory studies or diagnostic imaging at this time. Pain reproducible and began after new exercise regimen. Likely cardiovascular in nature however strict return parameters to the emergency room reviewed at length. Will discharge home in stable condition with use of anti-inflammatories as needed for pain. Encourage follow-up with primary care provider. Case discussed with Dr. Melara. - Lab Data Result diagrams: 04/19/22 12:40 04/19/22 12:40 Lab Results 04/19/22 04/19/22 04/19/22 Range/Units 12:40 12:40 12:40 WBC 6.7 (3.8-10.6) k/uL RBC 4.31 (3.80-5.40) m/uL Hgb 13.7 (11.4-16.0) gm/dL Hct 40.6 (34.0-46.0) % MCV 94.2 (80.0-100.0) fL MCH 31.8 (25.0-35.0) pg MCHC 33.7 (31.0-37.0) g/dL RDW 12.3 (11.5-15.5) % Plt Count 267 (150-450) k/uL MPV 7.4 Neutrophils % 57 % Lymphocytes % 32 % Monocytes % 4 % Eosinophils % 5 % Basophils % 0 % Neutrophils # 3.8 (1.3-7.7) k/uL Lymphocytes # 2.1 (1.0-4.8) k/uL Monocytes # 0.3 (0-1.0) k/uL Eosinophils # 0.3 (0-0.7) k/uL Basophils # 0.0 (0-0.2) k/uL PT 10.5 (9.0-12.0) sec INR 1.0 (<1.2) APTT 23.6 (22.0-30.0) sec Sodium 140 (137-145) mmol/L Potassium 4.0 (3.5-5.1) mmol/L Chloride 106 (98-107) mmol/L Carbon Dioxide 25 (22-30) mmol/L Anion Gap 9 mmol/L BUN 14 (7-17) mg/dL Creatinine 0.68 (0.52-1.04) mg/dL Est GFR (CKD-EPI)AfAm >90 (>60 ml/min/1.73 sqM) Est GFR (CKD-EPI)NonAf >90 (>60 ml/min/1.73 sqM) Glucose 111 H (74-99) mg/dL Calcium 9.7 (8.4-10.2) mg/dL Magnesium 2.1 (1.6-2.3) mg/dL Total Bilirubin 1.2 (0.2-1.3) mg/dL AST 36 (14-36) U/L ALT 33 (4-34) U/L Alkaline Phosphatase 72 (38-126) U/L Troponin I (0.000-0.034) ng/mL Total Protein 8.0 (6.3-8.2) g/dL Albumin 5.0 (3.5-5.0) g/dL 04/19/22 Range/Units 12:40 WBC (3.8-10.6) k/uL RBC (3.80-5.40) m/uL Hgb (11.4-16.0) gm/dL Hct (34.0-46.0) % MCV (80.0-100.0) fL MCH (25.0-35.0) pg MCHC (31.0-37.0) g/dL RDW (11.5-15.5) % Plt Count (150-450) k/uL MPV Neutrophils % % Lymphocytes % % Monocytes % % Eosinophils % % Basophils % % Neutrophils # (1.3-7.7) k/uL Lymphocytes # (1.0-4.8) k/uL Monocytes # (0-1.0) k/uL Eosinophils # (0-0.7) k/uL Basophils # (0-0.2) k/uL PT (9.0-12.0) sec INR (<1.2) APTT (22.0-30.0) sec Sodium (137-145) mmol/L Potassium (3.5-5.1) mmol/L Chloride (98-107) mmol/L Carbon Dioxide (22-30) mmol/L Anion Gap mmol/L BUN (7-17) mg/dL Creatinine (0.52-1.04) mg/dL Est GFR (CKD-EPI)AfAm (>60 ml/min/1.73 sqM) Est GFR (CKD-EPI)NonAf (>60 ml/min/1.73 sqM) Glucose (74-99) mg/dL Calcium (8.4-10.2) mg/dL Magnesium (1.6-2.3) mg/dL Total Bilirubin (0.2-1.3) mg/dL AST (14-36) U/L ALT (4-34) U/L Alkaline Phosphatase (38-126) U/L Troponin I <0.012 (0.000-0.034) ng/mL Total Protein (6.3-8.2) g/dL Albumin (3.5-5.0) g/dL - EKG Data EKG Comments: EKG completed 1142 tripped reformations sinus rhythm, ventricular rate 60 bpm, OH interval 184 ms, QRS duration 80 ms, QT/QTC 396/402 ms, PRT axes 53, 42, 26 - Radiology Data Radiology results: report reviewed, image reviewed Chest x-ray two-view and depression by radiologist no acute process. Disposition Clinical Impression: Atypical chest pain, Left hand paresthesia, Costochondritis Disposition: HOME SELF-CARE Condition: Stable Instructions (If sedation given, give patient instructions): Costochondritis (ED) Additional Instructions: Please utilize [id number] anti-inflammatory such as ibuprofen as needed for pain. Please follow-up with your primary care provider. Please return to the Emergency Department if symptoms worsen or any other concerns. Is patient prescribed a controlled substance at d/c from ED?: No Referrals: Penny Buitrago MD [Primary Care Provider] - 1-2 days Time of Disposition: 13:41
--- NOTE | 2022-04-19 12:41 | XR ---
EXAMINATION TYPE: XR chest 2V DATE OF EXAM: 04/19/2022 COMPARISON: NONE TECHNIQUE: PA and lateral views submitted. HISTORY: Chest pain FINDINGS: The lungs are clear and there is no pneumothorax, pleural effusion, or focal pneumonia. Heart size normal. No overt failure. IMPRESSION: 1. No acute process.
[2022-04-19 12:53] LABS: Basophils % (A) 0 %; Eosinophils # (A) 0.3 k/uL (0-0.7); Eosinophils % (A) 5 %; HCT 40.6 % (34.0-46.0); HGB 13.7 gm/dL (11.4-16.0); Lymphocytes # (A) 2.1 k/uL (1.0-4.8); Lymphocytes % (A) 32 %; MCH 31.8 pg (25.0-35.0); MCHC 33.7 g/dL (31.0-37.0); MCV 94.2 fL (80.0-100.0); Mean Platelet Volume 7.4; Monocytes # (A) 0.3 k/uL (0-1.0); Monocytes % (A) 4 %; Neutrophils # (A) 3.8 k/uL (1.3-7.7); Neutrophils % (A) 57 %; Platelet Count 267 k/uL (150-450); RBC 4.31 m/uL (3.80-5.40); RDW 12.3 % (11.5-15.5); WBC 6.7 k/uL (3.8-10.6)
[2022-04-19 13:07] LABS: ALT 33 U/L (4-34); AST 36 U/L (14-36); African American GFR (CKD) >90 (>60 ml/min/1.73 sqM); Alkaline Phosphatase 72 U/L (38-126); Anion Gap 9 mmol/L; Blood Urea Nitrogen 14 mg/dL (7-17); Calcium 9.7 mg/dL (8.4-10.2); Carbon Dioxide 25 mmol/L (22-30); Chloride 106 mmol/L (98-107); Glucose 111 mg/dL (74-99); Magnesium 2.1 mg/dL (1.6-2.3); Non-African American GFR(CKD) >90 (>60 ml/min/1.73 sqM); Sodium 140 mmol/L (137-145); Total Bilirubin 1.2 mg/dL (0.2-1.3)
[2022-04-19 13:14] LABS: Partial Thromboplastin Time 23.6 sec (22.0-30.0); Prothrombin Time 10.5 sec (9.0-12.0)
[2022-04-19 14:19] VITALS: BP 136/87; PULSE 75; RESP 16; TEMP 98.7
== END 2022-04-19 14:16 | disposition home or self-care (01) ==
LOC: EC 11:21
DX: M94.0 Chondrocostal junction syndrome [Tietze] (principal); R20.2 Paresthesia of skin; Z88.2 Allergy status to sulfonamides
CPT/HCPCS: 36415; 71046; 80053; 83735; 84484; 85025; 85610; 85730; 93005; 99285